=== PATIENT | female | born 2000 | race Caucasian/White ===

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

== ENCOUNTER 2022-03-26 10:52 | Emergency (ER) | payer BC, OTHER ==
--- NOTE | 2022-03-26 11:41 | ED ---
General Adult HPI - General Chief complaint: Back Pain/Injury Stated complaint: Back/side pain Time Seen by Provider: 03/26/22 11:09 Source: patient, RN notes reviewed Mode of arrival: ambulatory Limitations: no limitations - History of Present Illness Initial comments: This is a 22-year-old female presents emergency department tingling of right- sided back pain. Patient states started of recent. Patient has no urinary frequency or dysuria no fevers or chills no chest pain or shortness breath no abdominal pain. She states it does hurt to move. Denies any trauma. Patient is 24 weeks . Patient denies any vaginal bleeding or vaginal discharge. Patient states she is resting switched to Dr. Hutson for her PRIVACY OFFICER. - Related Data Home Medications Medication Instructions Recorded Confirmed Loratadine [Claritin] 10 mg PO DAILY PRN 03/21/15 07/13/21 Albuterol Sulfate [Ventolin HFA] 1 - 2 puff INHALATION RT-Q6H PRN 07/21/20 07/13/21 Pnv No.95/Ferrous Fum/Folic AC 1 tab PO DAILY 07/13/21 07/13/21 [ Multivitamin Tablet] Previous Rx's Medication Instructions Recorded Cephalexin [Keflex] 500 mg PO Q8HR #21 cap 03/26/22 Allergies Allergy/AdvReac Type Severity Reaction Status Date / Time No Known Allergies Allergy Verified 03/26/22 10:55 Review of Systems ROS Statement: Those systems with pertinent positive or pertinent negative responses have been documented in the HPI. ROS Other: All systems not noted in ROS Statement are negative. Past Medical History Past Medical History: Asthma Additional Past Medical History / Comment(s): seasonal allergies History of Any Multi-Drug Resistant Organisms: None Reported Past Surgical History: Adenoidectomy, Tonsillectomy Past Psychological History: Anxiety Smoking Status: Never smoker Past Alcohol Use History: None Reported Past Drug Use History: None Reported General Exam Limitations: no limitations General appearance: alert, in no apparent distress Head exam: Present: atraumatic, normocephalic, normal inspection Eye exam: Present: normal appearance, PERRL, EOMI. Absent: scleral icterus, conjunctival injection, periorbital swelling ENT exam: Present: normal exam, mucous membranes moist Cardiovascular Exam: Present: normal rhythm, tachycardia, normal heart sounds. Absent: systolic murmur, diastolic murmur, rubs, gallop, clicks GI/Abdominal exam: Present: soft, normal bowel sounds. Absent: distended, tenderness, guarding, rebound, rigid Back exam: Present: CVA tenderness (R) (Minimal). Absent: CVA tenderness (L) Course Vital Signs 03/26/22 10:55 Temperature 97.9 F Pulse Rate 110 H Respiratory 18 Rate Blood Pressure 133/81 O2 Sat by Pulse 96 Oximetry Medical Decision Making - Medical Decision Making 22-year-old presented for mild right-sided back pain. Patient pain may be related to muscle skeletal back pain. Patient does have small moderate bacteria and was started on oral antibiotics she is afebrile she has close follow-up return parameters were discussed. - Lab Data Lab Results 03/26/22 Range/Units 11:44 Urine Color Yellow Urine Appearance Cloudy H (Clear) Urine pH 6.5 (5.0-8.0) Ur Specific [place] 1.019 (1.001-1.035) Urine Protein Negative (Negative) Urine Glucose (UA) Negative (Negative) Urine Ketones Negative (Negative) Urine Blood Negative (Negative) Urine Nitrite Negative (Negative) Urine Bilirubin Negative (Negative) Urine Urobilinogen <2.0 (<2.0) mg/dL Ur Leukocyte Esterase Moderate H (Negative) Urine RBC 1 (0-5) /hpf Urine WBC 4 (0-5) /hpf Ur Squamous Epith Cells 13 H (0-4) /hpf Urine Bacteria Occasional H (None) /hpf Urine Mucus Few H (None) /hpf Disposition Clinical Impression: Back pain, UTI (urinary tract infection) Disposition: HOME SELF-CARE Condition: Stable Instructions (If sedation given, give patient instructions): Back Pain (ED) Additional Instructions: Please return to the Emergency Department if symptoms worsen or any other concerns. Prescriptions: Cephalexin [Keflex] 500 mg PO Q8HR #21 cap Is patient prescribed a controlled substance at d/c from ED?: No Referrals: Neal Amaya DO [Primary Care Provider] - 1-2 days Time of Disposition: 12:24
[2022-03-26 12:08] LABS: Appearance,Urine Cloudy (Clear); Bacteria,Urine Occasional /hpf; Bilirubin,Urine Negative (Negative); Blood,Urine Negative (Negative); Color,Urine Yellow; Glucose,Urine (UA) Negative (Negative); Ketones,Urine Negative (Negative); Leukocyte Esterase,Urine Moderate (Negative); Mucus,Urine Few /hpf; Nitrite,Urine Negative (Negative); PH, Urine 6.5 (5.0-8.0); Protein,Urine Negative (Negative); RBC,Urine 1 /hpf (0-5); Specific Gravity,Urine 1.019 (1.001-1.035); Squamous Epithelial Cell,Urine 13 /hpf (0-4); Urobilinogen,Urine <2.0 mg/dL (<2.0); WBC,Urine 4 /hpf (0-5)
[2022-03-26 12:41] VITALS: BP 131/82; PULSE 69; RESP 16; TEMP 98
== END 2022-03-26 12:40 | disposition home or self-care (01) ==
LOC: EC 10:52
DX: O23.42 Unspecified infection of urinary tract in pregnancy, second trimester (principal); O26.892 Other specified pregnancy related conditions, second trimester; N39.0 Urinary tract infection, site not specified; B96.89 Other specified bacterial agents as the cause of diseases classified elsewhere; M54.9 Dorsalgia, unspecified; J45.909 Unspecified asthma, uncomplicated; F41.9 Anxiety disorder, unspecified; Z79.51 Long term (current) use of inhaled steroids; Z3A.24 24 weeks gestation of pregnancy
CPT/HCPCS: 81001; 99283

== ENCOUNTER 2022-06-30 18:54 | Outpatient (CLI) | payer BC, OTHER ==
[2022-06-30 20:22] VITALS: BP 131/89; PULSE 120; RESP 17; TEMP 97.1
--- NOTE | 2022-07-07 08:14 | P.MSEPDOC ---
Presenting Problems - Arrival Data Date of Arrival on Unit: 06/30/22 Time of Arrival on Unit: 18:55 Mode of Transport: Ambulatory - Complaint OB-Reason for Admission/Chief Complaint: Rule Out SROM Comment: Pt presents to triage with c/o SROM around 1730. Pt states she had "three big gushes of clear fluid" Medical History - Information : 2 Para: 1 Term: 1 : 0 Abortions: Spontaneous or Elective: 0 Number of Living Children: 1 - Gestational Age Gestational Age by YOLANDA (wks/days): 38 Weeks and 4 Days Review of Systems - Review of Systems Constitutional: No problems Breast: No problems ENT: No problems Cardiovascular: No problems Respiratory: No problems Gastrointestinal: No problems Genitourinary: No problems Musculoskeletal: No problems Neurological: No problems Skin: No problems Vital Signs - Temperature Temperature: 97.1 F Temperature Source: Temporal Artery Scan - Pulse Pulse Oximetery Pulse Rate: 120 Pulse Assessment Method: Pulse Oximetry - Respirations Respiratory Rate: 17 Oxygen Delivery Method: Room Air O2 Sat by Pulse Oximetry: 99 - Blood Pressure Right Arm Blood Pressure: 131/89 Blood Pressure Mean: 103 Blood Pressure Source: Automatic Cuff Medical Screen Scoring - Cervical Exam Dilation (cm): 3 Effacement (%): 60 Station: -2 Membranes: Intact - Uterine Contractions Resting: Soft to palpation - Assessment - Baby A Baseline FHR: 135 Heart Rate - NICHD Category: Category I (Normal) NST: Reactive Physician Notification - Physician Notified Physician Notified Date: 06/30/22 Physician Notified Time: 19:36 Physician: Maria Elena Amaya Order Received: Yes - Notification Comment Comment: RN spoke with Dr. Amaya regarding triage pt c/o SROM around 1730 and describes having three big gushes of clear fluid. Reported on maternal vital signs, irregular contx pattern with two contx traced but not felt by pt, FHT - including tracing being flat at beginning of strip but is now have a reactive NST, two amnisure tests that were both negative, with the second test being performed at the pt's request, and cervical exam of 3/60/-2. Additionally, reported that pt is scheduled for IOL this with Dr. Hutson. Orders received to discharge pt home, educate that everything looks good regarding tracing, educate on labor S/S and when/if pt needs to return, otherwise we will see pt on for IOL. Maternal Triage Index - Maternal Triage Index Presenting for scheduled procedure w/no complaint: No - Stat/Priority 1 Stat Priority 1: No - Urgent/Priority 2 Urgent Priority 2: No - Prompt/Priority 3 Prompt Priority 3: No - Non-Urgent/Priority 4 Non-Urgent Priority 4: Yes Criteria Met for Priority 4: 38 and 4 weeks with c/o SROM Disposition - Disposition OB Disposition: Discharge to home, Written follow up instructions reviewed Discharge Date: 06/30/22 Discharge Time: 19:42 I agree with the RN Medical Screening Exam: Yes Case reviewed; plan agreed upon as documented in EMR&OBIX.: Yes Diagnosis: rule out labor
== END 2022-06-30 19:42 | disposition home or self-care (01) ==
LOC: FBPOP 18:54
PROVIDERS: ATTEND Obstetrics & Gynecology
DX: O47.1 False labor at or after 37 completed weeks of gestation (principal); Z3A.38 38 weeks gestation of pregnancy
CPT/HCPCS: 59025; 84112; 99213

== ENCOUNTER 2022-07-03 06:00 | Inpatient (IN) | payer BC, OTHER ==
[2022-07-03] MEDS ORDERED: LIDOCAINE 0.5% (PF) 5 MG/ML (50 ML SDV) SQ PRN (06:14)
[2022-07-03] MEDS ORDERED: TERBUTALINE 1 MG/ML VIAL SQ PRN (06:14)
[2022-07-03] MEDS: OXYTOCIN 30 UNITS/500 ML NS 30 UNIT in SALINE 1 500ML.BAG IV SCH ×2 (06:29→15:12)
[2022-07-03] MEDS: LACTATED RINGERS 1,000 ML IV SCH ×2 (06:30→11:00)
[2022-07-03 06:54] LABS: Basophils % (A) 0 %; Eosinophils # (A) 0.1 k/uL (0-0.7); Eosinophils % (A) 1 %; HCT 28.4 % (34.0-46.0); HGB 9.1 gm/dL (11.4-16.0); Hypochromasia Marked; Lymphocytes # (A) 1.7 k/uL (1.0-4.8); Lymphocytes % (A) 17 %; MCH 26.4 pg (25.0-35.0); MCHC 32.1 g/dL (31.0-37.0); MCV 82.4 fL (80.0-100.0); Mean Platelet Volume 10.4; Monocytes # (A) 0.5 k/uL (0-1.0); Monocytes % (A) 5 %; Neutrophils # (A) 7.6 k/uL (1.3-7.7); Neutrophils % (A) 74 %; Platelet Count 212 k/uL (150-450); Poikilocytosis Slight; RBC 3.45 m/uL (3.80-5.40); RDW 15.9 % (11.5-15.5); WBC 10.2 k/uL (4.0-11.0)
--- NOTE | 2022-07-03 07:07 | P.HPOB ---
History of Present Illness H&P Date: 07/03/22 Chief Complaint: Here for induction of labor with advanced cervical dilation This is a 22-year-old female 2 para 1001 EDC 11 06/21/1937 weeks gestation who presents today for induction with advanced cervical dilatation. Fetus is been active throughout the . She is linsey mildly approximately every 4-5 minutes apart. She denies fluid leakage or vaginal bleeding. history significant for type O+, rubella status immune. VDRL testing, urine culture, hepatitis B surface antigen, group B strep cultures all negative. One-hour Glucola 94. Past medical history is significant for hemorrhage with her prior delivery, Methergine given. History of asthma, inhaler as needed. Past surgical history is negative. Current medications vitamins, baby aspirin daily. Social history patient is single, she is a nonsmoker, she denies alcohol or drug use. Family history is unremarkable. On exam patient is 5 foot 4 inches, 224 pounds, blood pressure 135/79 on admission. Vital signs are stable and she is afebrile. General physical exam is within normal limits. Chest is clear in all cuenca. Extremities reveal no edema. Cervix is 4 cm dilated, 70% effaced, -2 station, vertex presentation. Artificial amniorrhexis reveals clear fluid. heart rate is consistent with reactive NST. Impression: 39 week , here for induction of labor. All signs reassuring. Plan: Continue close maternal and surveillance. Analgesic options reviewed. Oxytocin per hospital protocol. Anticipate normal spontaneous va ginal delivery. Review of Systems Constitutional: Reports as per HPI Past Medical History Past Medical History: Asthma Additional Past Medical History / Comment(s): seasonal allergies History of Any Multi-Drug Resistant Organisms: None Reported Past Surgical History: Adenoidectomy, Tonsillectomy Past Psychological History: Anxiety Smoking Status: Never smoker Past Alcohol Use History: None Reported Past Drug Use History: None Reported Medications and Allergies Home Medications Medication Instructions Recorded Confirmed Type Loratadine [Claritin] 10 mg PO DAILY PRN 03/21/15 07/13/21 History Albuterol Sulfate [Ventolin HFA] 1 - 2 puff INHALATION RT-Q6H PRN 07/21/20 07/13/21 History Pnv No.95/Ferrous Fum/Folic AC 1 tab PO DAILY 07/13/21 07/13/21 History [ Multivitamin Tablet] Cephalexin [Keflex] 500 mg PO Q8HR #21 cap 03/26/22 Rx Aspirin [[place] Aspirin EC] 81 mg PO 07/03/22 History Allergies Allergy/AdvReac Type Severity Reaction Status Date / Time No Known Allergies Allergy Verified 07/03/22 06:11 Exam Vital Signs Temp Pulse Resp BP Pulse Ox 07/03/22 06:11 97.7 F 98 16 135/79 96 Intake and Output 07/02/22 07/03/22 07/03/22 22:59 06:59 14:59 Other: Weight 101.605 kg She dictation under HPI placed Results Result Diagrams: 07/03/22 06:10 Abnormal Lab Results - Last 24 Hours (Table) 07/03/22 Range/Units 06:10 RBC 3.45 L (3.80-5.40) m/uL Hgb 9.1 L (11.4-16.0) gm/dL Hct 28.4 L (34.0-46.0) % RDW 15.9 H (11.5-15.5) % Assessment and Plan Assessment: 39 week intrauterine , here for induction of labor. All signs reassuring. Plan: Close maternal and surveillance. Analgesic options reviewed. Anticipate normal spontaneous vaginal delivery. Time with Patient: Less than 30
[2022-07-03] MEDS ORDERED: SODIUM CHLORIDE 0.9% 100 ML BAG ONE (11:37)
[2022-07-03] MEDS ORDERED: ROPIVACAINE 5 MG/ML 20 ML AMPULE ONE (11:37)
[2022-07-03] MEDS ORDERED: fentaNYL (PF) 50 MCG/ML 5 ML AMP ONE (11:37)
[2022-07-03] MEDS ORDERED: ROPIVACAINE 100 MG, fentaNYL (PF). 200 MCG in SODIUM CHLORIDE 0.9% 76 ML EPIDURAL ONE (12:25)
[2022-07-03] MEDS ORDERED: HYDROCORTISONE 2.5% RECTAL CREAM 30 GM TUBE RECTAL PRN (13:08)
[2022-07-03] MEDS ORDERED: diphenhydrAMINE 25 MG CAP PO PRN (13:08)
[2022-07-03] MEDS ORDERED: SIMETHICONE 80 MG CHEWABLE PO PRN (13:08)
[2022-07-03] MEDS ORDERED: diphenhydrAMINE 50 MG CAP PO PRN (13:08)
[2022-07-03] MEDS ORDERED: BENZOCAINE/MENTHOL SPRAY 1 GM/SPRAY AEROSOL TOPICAL PRN (13:08)
[2022-07-03] MEDS ORDERED: ZOLPIDEM 5 MG TAB PO PRN (13:08)
[2022-07-03] MEDS ORDERED: diphenhydrAMINE 50 MG/ML 1 ML VIAL IVP PRN ×2 (13:08)
[2022-07-03] MEDS ORDERED: LANOLIN CREAM 5 GM TUBE TOPICAL PRN (13:08)
--- NOTE | 2022-07-03 13:08 | P.PROBDLV ---
Vaginal Delivery Note - . Vaginal Delivery Note: This is a 22-year-old 2 para 101 EDC 07/10/2022 at 39 weeks gestation who presented earlier today for induction with favorable cervix. Group B strep cultures are negative, blood type O positive, rubella status immune. Please see dictated history and physical for details. Oxytocin was started and titrated per protocol. Epidural was placed per her request. She progressed well through the first stage of labor was judged to be completely dilated. Perineal body was prepped and draped in usual sterile fashion. With excellent maternal expulsive efforts the head delivered occiput anterior and restituted accordingly. There was no nuchal cord noted. The left or anterior shoulder was delivered easily from underneath the pubic symphysis at which time the oropharynx, nasopharynx, and external nares were bulb suctioned. Patient was officially delivered of a liveborn female at 1254 hrs. Per parental request, the cord was allowed to stop pulsating. It was then doubly clamped and ligated, infant was handed to waiting nurses for evaluation where scores of 9 and 9 at one and 5 minutes respectively are given. The placenta delivered spontaneously, it was inspected and noted to be intact with trivascular cord at 1257 hrs. Uterus is then firmly massaged. Careful inspection of the cervix, vagina, perineum, periurethral, and perirectal areas revealed no lacerations and no defects. This is firm and in the midline, symmetric and 18 week size upon completion of delivery. All sponge needle and enhancement counts are correct. Patient and her family are allowed to begin the bonding experience in the LDR. 's weight 3770 g or 8 lbs. 5 oz.
[2022-07-03] MEDS ORDERED: ACETAMINOPHEN TAB 325 MG TAB PO PRN (18:43)
[2022-07-03] MEDS: SENNOSIDES-DOCUSATE SODIUM 1 EACH TAB PO SCH (20:20)
[2022-07-04 06:26] LABS: Basophils % (A) 0 %; Eosinophils # (A) 0.1 k/uL (0-0.7); Eosinophils % (A) 1 %; HCT 28.8 % (34.0-46.0); HGB 9.2 gm/dL (11.4-16.0); Hypochromasia Marked; Lymphocytes # (A) 1.5 k/uL (1.0-4.8); Lymphocytes % (A) 15 %; MCH 26.9 pg (25.0-35.0); MCV 84.3 fL (80.0-100.0); Mean Platelet Volume 11.4; Monocytes # (A) 0.6 k/uL (0-1.0); Monocytes % (A) 6 %; Neutrophils # (A) 7.7 k/uL (1.3-7.7); Neutrophils % (A) 76 %; Platelet Count 189 k/uL (150-450); Poikilocytosis Slight; RBC 3.42 m/uL (3.80-5.40); RDW 15.7 % (11.5-15.5); WBC 10.1 k/uL (4.0-11.0)
[2022-07-04 08:46] VITALS: BP 132/74; PULSE 85; RESP 16; TEMP 98.3
[2022-07-04] MEDS: SENNOSIDES-DOCUSATE SODIUM 1 EACH TAB PO SCH (08:46)
--- NOTE | 2022-07-04 08:51 | P.DS ---
Providers Date of admission: 07/03/22 06:00 Expected date of discharge: 07/04/22 Attending physician: Arely Hutson Primary care physician: Stated None Assessment: This is a 22-year-old white female 2 para 1001 who presented at 39 we eks gestation for elective induction of labor with favorable multiparous cervix. isessentially unremarkable, blood type O positive, rubella status immune.Group B strep cultures negative. Please see dictated history and physical for details. Artificial amniorrhexis revealed clear fluid. Epidural was placed per her request. She went on to deliver vaginally a liveborn female infant with scores of 9 and 9 at one and 5 minutes respectively. weighed 8 lbs. 5 oz. or 3770 g. No perineal lacerations were encountered. Estimated blood loss 200 mL's. Please see dictated delivery note for details. This morning the patient and her baby are both doing very well. Patient is voiding, inability, passing flatus without difficulty. Vital signs are stable and she is afebrile. infant is doing well. Breasts are not engorged. Fundus is firm, midline, symmetric, 18 week size. Patient is judged to be in very good condition for discharge home. She will follow-up with me in the office in 6 weeks. I have reminded her no intercourse, tampons or douching. She will use [id number] Advil or Aleve, or Motrin as needed for pain. She will call with any fevers shakes or chills, foul smelling or copious lochia, with the passage of large blood clots, with any pain not alleviated by [id number] products, or indeed with any concerns. Patient Condition at Discharge: Good Plan - Discharge Summary Discharge Rx Participant: No New Discharge Prescriptions: No Action Loratadine [Claritin] 10 mg PO DAILY PRN PRN Reason: Allergy Symptoms Albuterol Sulfate [Ventolin HFA] 1 - 2 puff INHALATION RT-Q6H PRN PRN Reason: Shortness Of Breath Aspirin [[place] Aspirin EC] 81 mg PO Pnv No.95/Ferrous Fum/Folic AC [ Multivitamin Tablet] 1 tab PO DAILY Cephalexin [Keflex] 500 mg PO Q8HR #21 cap Discharge Medication List Loratadine [Claritin] 10 mg PO DAILY PRN 03/21/15 [History] Albuterol Sulfate [Ventolin HFA] 1 - 2 puff INHALATION RT-Q6H PRN 07/21/20 [History] Pnv No.95/Ferrous Fum/Folic AC [ Multivitamin Tablet] 1 tab PO DAILY 07/13/21 [History] Cephalexin [Keflex] 500 mg PO Q8HR #21 cap 03/26/22 [Rx] Aspirin [[place] Aspirin EC] 81 mg PO 07/03/22 [History] Follow up Appointment(s)/Referral(s): Arely Hutson MD [STAFF PHYSICIAN] - 2 Weeks Discharge Disposition: HOME SELF-CARE
== END 2022-07-04 14:57 | disposition home or self-care (01) | DRG 807 ==
LOC: 4FBP 06:00
PROVIDERS: ADMIT Obstetrics & Gynecology; ATTEND Obstetrics & Gynecology
PROC: 10907ZC Drainage of Amniotic Fluid, Therapeutic from Products of Conception, Via Natural or Artificial Opening (ICD-10-PCS; principal; 2022-07-03)
PROC: 10E0XZZ Delivery of Products of Conception, External Approach (ICD-10-PCS; principal; 2022-07-03)
PROC: 3E033VJ Introduction of Other Hormone into Peripheral Vein, Percutaneous Approach (ICD-10-PCS; principal; 2022-07-03)
DX: O99.344 Other mental disorders complicating childbirth (principal); F41.9 Anxiety disorder, unspecified; O99.52 Diseases of the respiratory system complicating childbirth; J45.909 Unspecified asthma, uncomplicated; Z79.82 Long term (current) use of aspirin; Z87.59 Personal history of other complications of pregnancy, childbirth and the puerperium; Z28.310 Unvaccinated for COVID-19; Z3A.39 39 weeks gestation of pregnancy; Z37.0 Single live birth
CPT/HCPCS: 85025; 86850; 86900; 86901

== ENCOUNTER → 2023-01-07 | Outpatient (CLI) | payer BC, OTHER ==
--- NOTE | 2023-01-07 11:18 | XR ---
EXAM TYPE: LUMBAR SPINE X RAY SERIES COMPARISON: NONE HISTORY: Pain TECHNIQUE: 4 views are submitted. FINDINGS: Alignment is anatomic. The pedicles are intact. The transverse processes are intact. There is no s pondylolisthesis. Spina bifida occulta. IMPRESSION: 1. No acute process.
--- NOTE | 2023-01-07 11:21 | XR ---
EXAMINATION TYPE: XR thoracic spine 2V DATE OF EXAM: 01/07/2023 COMPARISON: NONE HISTORY: Pain TECHNIQUE: 3 views submitted FINDINGS: Alignment is anatomic. There is no compression deformities. Vertebral body height and disc space emily ntained. Pedicles are intact. IMPRESSION: 1. No definite abnormality identified
== END | disposition home or self-care (01) ==
LOC: RADXRMAIN 10:49
PROVIDERS: ATTEND Nurse Practitioner Family
DX: M54.50 Low back pain, unspecified (principal); M54.6 Pain in thoracic spine
CPT/HCPCS: 72070; 72100

== ENCOUNTER 2023-01-30 11:34 | Emergency (ER) | payer BC, OTHER ==
[2023-01-30 11:42] VITALS: RESP 18
[2023-01-30] MEDS ORDERED: diphenhydrAMINE 50 MG/ML 1 ML VIAL IVP STA (12:21)
[2023-01-30] MEDS ORDERED: methylPREDNISolone SOD SUCCI 125 MG/2 ML VIAL IV STA (12:24)
--- NOTE | 2023-01-30 12:34 | ED ---
General Adult HPI - General Chief complaint: Skin/Abscess/Foreign Body Stated complaint: Hives Time Seen by Provider: 01/30/23 12:05 Source: patient Mode of arrival: ambulatory Limitations: no limitations - History of Present Illness Initial comments: -year-old female in no significant past medical history presented to the ED today with chief complaint rash. States that she woke up with an itchy rash to her bilateral upper arms, chest, and her abdomen. Denies any known allergen exposure. He states that she has tried some Benadryl with no relief. No other complaints. - Related Data Home Medications Medication Instructions Recorded Confirmed Loratadine [Claritin] 10 mg PO DAILY PRN 03/21/15 07/13/21 Albuterol Sulfate [Ventolin HFA] 1 - 2 puff INHALATION RT-Q6H PRN 07/21/20 07/13/21 Pnv No.95/Ferrous Fum/Folic AC 1 tab PO DAILY 07/13/21 07/13/21 [ Multivitamin Tablet] Aspirin [[place] Aspirin EC] 81 mg PO 07/03/22 Previous Rx's Medication Instructions Recorded Cephalexin [Keflex] 500 mg PO Q8HR #21 cap 03/26/22 methylPREDNISolone Dose Pack 4 mg PO DIRECTED #1 packet 01/30/23 [Medrol Dose Pack] Allergies Allergy/AdvReac Type Severity Reaction Status Date / Time No Known Allergies Allergy Verified 01/30/23 11:42 Review of Systems ROS Statement: Those systems with pertinent positive or pertinent negative responses have been documented in the HPI. ROS Other: All systems not noted in ROS Statement are negative. Past Medical History Past Medical History: Asthma Additional Past Medical History / Comment(s): seasonal allergies History of Any Multi-Drug Resistant Organisms: None Reported Past Surgical History: Adenoidectomy, Tonsillectomy Past Psychological History: Anxiety Smoking Status: Never smoker Past Alcohol Use History: None Reported Past Drug Use History: None Reported General Exam Limitations: no limitations General appearance: alert, in no apparent distress Head exam: Present: atraumatic, normocephalic Eye exam: Present: normal appearance ENT exam: Present: normal exam, mucous membranes moist, other (No oral lesions.) Neck exam: Present: normal inspection Respiratory exam: Present: normal lung sounds bilaterally Cardiovascular Exam: Present: regular rate, normal rhythm Skin exam: Present: warm, dry, rash (Maculopapular rash on the upper extremities near the axilla, on the breasts, and the lower abdomen.) Course Vital Signs 01/30/23 11:40 Temperature 97.8 F Pulse Rate 110 H Respiratory 18 Rate Blood Pressure 134/91 O2 Sat by Pulse 99 Oximetry Medical Decision Making - Medical Decision Making Was pt. sent in by a medical professional or institution (, MARGRET, DENTAL SCHEDULER, urgent care, hospital, or long term...) When possible be specific @ -No Did you speak to anyone other than the patient for history (EMS, parent, family, police, friend...)? What history was obtained from this source @ -Fianc, reports rash not present yesterday. Did you review nursing and triage notes (agree or disagree)? Why? @ -I reviewed and agree with nursing and triage notes Were old charts reviewed (outside hosp., previous admission, EMS record, old EKG, old radiological studies, urgent care reports/EKG's, long term records)? Report findings @ -No old charts were reviewed Differential Diagnosis (chest pain, altered mental status, abdominal pain women, abdominal pain men, vaginal bleeding, weakness, fever, dyspnea, syncope, headache, dizziness, GI bleed, back pain, seizure, CVA, palpatations, mental health, musculoskeletal)? @ -Atopic dermatitis, SJS, Scabies, Zoster. This is not meant to be an all- inclusive list. EKG interpreted by me (3pts min.). @ -As above X-rays interpreted by me (1pt min.). @ -None done CT interpreted by me (1pt min.). @ -None done U/S interpreted by me (1pt. min.). @ -None done What testing was considered but not performed or refused? (CT, X-rays, U/S, labs)? Why? @ -None What meds were considered but not given or refused? Why? @ -None Did you discuss the management of the patient with other professionals (professionals i.e. MARGRET Brito, DENTAL SCHEDULER, lab, RT, psych nurse, social work job titles, vinyl hanger, teacher, community reinvestment act officer, geriatric case manager)? Give summary @ -No Was smoking cessation discussed for >3mins.? @ -No Was critical care preformed (if so, how long)? @ -No Were there social determinants of health that impacted care today? How? (Homelessness, low income, unemployed, alcoholism, drug addiction, transportation, low edu. Level, literacy, decrease access to med. care, longterm, rehab)? @ -No Was there de-escalation of care discussed even if they declined (Discuss DNR or withdrawal of care, Hospice)? DNR status @ -No What co-morbidities impacted this encounter? (DM, HTN, Smoking, COPD, CAD, Cancer, CVA, ARF, Chemo, Hep., AIDS, mental health diagnosis, sleep apnea, morbid obesity)? @ -None Was patient admitted / discharged? Hospital course, mention meds given and route, prescriptions, significant lab abnormalities, going to OR and other pertinent info. @ -Discharged. Given IV Benadryl and Solu-Medrol with improvement of symptoms. Undiagnosed new problem with uncertain prognosis? @ -No Drug Therapy requiring intensive monitoring for toxicity (Heparin, Nitro, Insulin, Cardizem)? @ -No Were any procedures done? @ -No Diagnosis/symptom? @ -Rash Acute, or Chronic, or Acute on Chronic? @ -Acute Uncomplicated (without systemic symptoms) or Complicated (systemic symptoms)? @ -Uncomplicated Side effects of treatment? @ -No Exacerbation, Progression, or Severe Exacerbation? @ -No Poses a threat to life or bodily function? How? (Chest pain, [place], [place], pneumonia, PE, COPD, DKA, ARF, appy, cholecystitis, CVA, Diverticulitis, Homicidal, Suicidal, threat to staff... and all critical care pts) @ -No Disposition Clinical Impression: Rash Disposition: HOME SELF-CARE Condition: Good Additional Instructions: Please return to the Emergency Department if symptoms worsen or any other concerns. Prescriptions: methylPREDNISolone Dose Pack [Medrol Dose Pack] 4 mg PO DIRECTED #1 packet Is patient prescribed a controlled substance at d/c from ED?: No Referrals: Neal Amaya DO [Primary Care Provider] - 1-2 days Time of Disposition: 12:44 Decision Time: 12:43
[2023-01-30 13:49] VITALS: BP 111/76; PULSE 101; TEMP 97.5
== END 2023-01-30 13:45 | disposition home or self-care (01) ==
LOC: EC 11:34
DX: R21 Rash and other nonspecific skin eruption (principal); J45.909 Unspecified asthma, uncomplicated; F41.9 Anxiety disorder, unspecified; Z79.82 Long term (current) use of aspirin; Z79.899 Other long term (current) drug therapy
CPT/HCPCS: 99282; 96374; 96375; J1200; J2930

== ENCOUNTER → 2023-04-10 | Outpatient (CLI) | payer BC, OTHER ==
--- NOTE | 2023-04-10 13:04 | XR ---
EXAMINATION TYPE: XR forearm LT DATE OF EXAM: 04/10/2023 CLINICAL HISTORY: pain TECHNIQUE: Frontal and lateral images of the left forearm are obtained. COMPARISON: None. FINDINGS: There is no acute fracture/dislocation evident. The joint spaces appear within normal limi ts. The overlying soft tissue appears unremarkable. IMPRESSION: There is no acute fracture or dislocation. ICD 10 NO FRACTURE, INITIAL EVALUATION
--- NOTE | 2023-04-10 13:05 | XR ---
EXAMINATION TYPE: XR wrist complete LT DATE OF EXAM: 04/10/2023 CLINICAL HISTORY: pain TECHNIQUE: Frontal, lateral and oblique images of the left wrist are obtained. COMPARISON: None. FINDINGS: There is no acute fracture/dislocation evident. The joint spaces appear within normal hernandez its. The overlying soft tissue appears unremarkable. IMPRESSION: There is no acute fracture or dislocation seen. ICD 10 NO FRACTURE, INITIAL EVALUATION
== END | disposition home or self-care (01) ==
LOC: RADXRMAIN 12:26
PROVIDERS: ATTEND Family Medicine
DX: M25.532 Pain in left wrist (principal); M79.632 Pain in left forearm

== ENCOUNTER 2024-03-21 09:27 | Outpatient (CLI) | payer BC, OTHER ==
[2024-03-21 10:53] LABS: Basophils # (A) 0.1 k/uL (0-0.2); Basophils % (A) 1 %; Eosinophils # (A) 0.1 k/uL (0-0.7); Eosinophils % (A) 1 %; HCT 30.1 % (34.0-46.0); HGB 9.5 gm/dL (11.4-16.0); Hypochromasia Moderate; Lymphocytes # (A) 1.2 k/uL (1.0-4.8); Lymphocytes % (A) 19 %; MCHC 31.6 g/dL (31.0-37.0); MCV 85.7 fL (80.0-100.0); Mean Platelet Volume 9.8; Monocytes # (A) 0.3 k/uL (0-1.0); Monocytes % (A) 5 %; Neutrophils # (A) 4.2 k/uL (1.3-7.7); Neutrophils % (A) 70 %; Platelet Count 167 k/uL (150-450); Poikilocytosis Slight; RBC 3.51 m/uL (3.80-5.40); RDW 15.3 % (11.5-15.5)
[2024-03-21 10:54] LABS: Appearance,Urine Clear (Clear); Bilirubin,Urine Negative (Negative); Blood,Urine Negative (Negative); Color,Urine Colorless; Glucose,Urine (UA) Negative (Negative); Ketones,Urine 1+ (Negative); Leukocyte Esterase,Urine Negative (Negative); Nitrite,Urine Negative (Negative); Protein,Urine Negative (Negative); Specific Gravity,Urine 1.008 (1.001-1.035); Urobilinogen,Urine <2.0 mg/dL (<2.0)
[2024-03-21 11:01] LABS: ALT 12 U/L (4-34); AST 20 U/L (14-36); African American GFR (CKD) >90 (>60 ml/min/1.73 sqM); Blood Urea Nitrogen 3 mg/dL (7-17); LDH 215 U/L (120-246); Non-African American GFR(CKD) >90 (>60 ml/min/1.73 sqM)
[2024-03-21 11:07] LABS: Creatinine,Urine Random 49.2 mg/dL; Protein/Creatinine Ratio,Urine 0.244
[2024-03-21 11:34] VITALS: BP 127/73; PULSE 111; RESP 17; TEMP 97.8
--- NOTE | 2024-03-21 16:14 | P.MSEPDOC ---
Presenting Problems - Arrival Data Date of Arrival on Unit: 03/21/24 Time of Arrival on Unit: 09:27 Mode of Transport: Ambulatory - Complaint OB-Reason for Admission/Chief Complaint: Elevated Blood Pressure Comment: pt presents to triage for elevated bp's at home, having headaches and nausea, Medical History - Information : 3 Para: 2 Term: 2 : 0 Abortions: Spontaneous or Elective: 0 Number of Living Children: 2 - Gestational Age Gestational Age by YOLANDA (wks/days): 37 Weeks and 2 Days Review of Systems - Review of Systems Constitutional: No problems Breast: No problems ENT: No problems Cardiovascular: No problems Respiratory: No problems Gastrointestinal: No problems Genitourinary: No problems Musculoskeletal: No problems Neurological: No problems Skin: No problems Vital Signs - Temperature Temperature: 97.8 F Temperature Source: Temporal Artery Scan - Pulse Right Brachial Pulse Rate: 111 Pulse Assessment Method: Automatic Cuff - Respirations Respiratory Rate: 17 Oxygen Delivery Method: Room Air - Blood Pressure Right Arm Blood Pressure: 127/73 Blood Pressure Mean: 91 Blood Pressure Source: Automatic Cuff Medical Screen Scoring - Uterine Contractions Intensity: Mild Resting: Soft to palpation - Assessment - Baby A Baseline FHR: 140 Heart Rate - NICHD Category: Category I (Normal) NST: Reactive Physician Notification - Physician Notified Physician Notified Date: 03/21/24 Physician Notified Time: 10:05 Physician: Elizabeth Narvaez - Notification Comment Comment: reactive nst, bp's and labs wnl, pt has appt on Thu with Dr. Narvaez in the office, pt is scheduled for 03/28, Maternal Triage Index - Maternal Triage Index Presenting for scheduled procedure w/no complaint: No - Stat/Priority 1 Stat Priority 1: No - Urgent/Priority 2 Urgent Priority 2: No - Prompt/Priority 3 Prompt Priority 3: Yes Criteria Met for Priority 3: pt presents to triage for elevated bp's at home, having headaches and nausea, Disposition - Disposition OB Disposition: Triage, Discharge to home, Written follow up instructions reviewed Discharge Date: 03/21/24 Discharge Time: 11:25 I agree with the RN Medical Screening Exam: Yes Physician's MSE Comment: I have neither seen nor examined the patient Case reviewed; plan agreed upon as documented in EMR&OBIX.: Yes Diagnosis: MATERNAL CARE FOR PROBLEM, UNSP, THIRD * DO NOT USE *
== END 2024-03-21 11:25 | disposition home or self-care (01) ==
LOC: FBPOP 09:27
PROVIDERS: ATTEND Obstetrics & Gynecology
DX: O26.893 Other specified pregnancy related conditions, third trimester (principal); R03.0 Elevated blood-pressure reading, without diagnosis of hypertension; Z3A.37 37 weeks gestation of pregnancy
CPT/HCPCS: 36415; 59025; 81003; 82565; 82570; 83615; 84156; 84450; 84460; 84520; 84550; 85025; 99215

== ENCOUNTER 2024-03-28 06:00 | Inpatient (IN) | payer BC, OTHER ==
[2024-03-28] MEDS ORDERED: CARBOPROST TROMETHAMINE 250 MCG/ML 1 ML AMP IM PRN (06:15)
[2024-03-28] MEDS ORDERED: TERBUTALINE 1 MG/ML VIAL SQ PRN (06:15)
[2024-03-28] MEDS ORDERED: LIDOCAINE 0.5% (PF) 5 MG/ML (50 ML SDV) SQ PRN (06:15)
[2024-03-28] MEDS: LACTATED RINGERS 1,000 ML IV SCH (06:15)
[2024-03-28] MEDS ORDERED: miSOPROStoL 200 MCG TAB RECTAL PRN (06:15)
[2024-03-28] MEDS ORDERED: miSOPROStoL 200 MCG TAB PO PRN (06:15)
[2024-03-28] MEDS ORDERED: OXYTOCIN 10 UNIT/ML 1 ML VIAL IM PRN (06:15)
[2024-03-28] MEDS ORDERED: TRANEXAMIC 1,000 MG/100ML-NACL 1,000 MG in EMPTY BAG 1 BAG IV PRN (06:15)
[2024-03-28] MEDS: OXYTOCIN 30 UNITS/500 ML NS 30 UNIT in SALINE 1 500ML.BAG IV SCH (06:30)
[2024-03-28 06:47] LABS: Basophils % (A) 1 %; Eosinophils # (A) 0.1 k/uL (0-0.7); Eosinophils % (A) 1 %; HCT 29.2 % (34.0-46.0); HGB 9.2 gm/dL (11.4-16.0); Hypochromasia Marked; Lymphocytes # (A) 1.9 k/uL (1.0-4.8); Lymphocytes % (A) 26 %; MCHC 31.5 g/dL (31.0-37.0); MCV 85.6 fL (80.0-100.0); Mean Platelet Volume 9.7; Monocytes # (A) 0.4 k/uL (0-1.0); Monocytes % (A) 6 %; Neutrophils # (A) 4.5 k/uL (1.3-7.7); Neutrophils % (A) 64 %; Platelet Count 187 k/uL (150-450); Poikilocytosis Slight; RBC 3.41 m/uL (3.80-5.40); RDW 15.8 % (11.5-15.5); WBC 7.1 k/uL (3.8-10.6)
--- NOTE | 2024-03-28 08:43 | P.HPOB ---
History of Present Illness H&P Date: 03/28/24 Chief Complaint: medical induction of labor Ms. Balderas is a 24 year old at 38 weeks and 1 day with EDC of 04/10/2024 who presents for medical induction of labor for chronic hypertension on Procardia XL 30mg daily. The is otherwise complicated by maternal anx iety and depression, which has been stable without pharmacotherapy. Additionally, the patient has a history of asthma which has been well-controlled during the with minimal albuterol use. The fetus is estimated to be in the 17%ile for growth based on a 32 week US. Obstetric history: 2 SVDs, 1st complicated by gestational hypertension and hemorrhage work-up: blood type O positive, antibody screen negative, rubella immune, HBsAg negative, HIV negative, gonorrhea negative, chlamydia negative, 1 hour GTT within normal limits, GBS negative. s/p TDap in 3rd trimester. Past Medical History Past Medical History: Asthma Additional Past Medical History / Comment(s): seasonal allergies History of Any Multi-Drug Resistant Organisms: None Reported Past Surgical History: Adenoidectomy, Tonsillectomy Past Anesthesia/Blood Transfusion Reactions: No Reported Reaction Past Psychological History: Anxiety Smoking Status: Never smoker Past Alcohol Use History: None Reported Past Drug Use History: None Reported - Past Family History Mother Family Medical History: No Reported History Medications and Allergies Home Medications Medication Instructions Recorded Confirmed Type Albuterol Sulfate [Ventolin HFA] 1 - 2 puff INHALATION RT-Q6H PRN 07/21/20 03/28/24 History NIFEdipine XL [Procardia XL] 1 tablet PO DAILY 03/28/24 03/28/24 History Pnv No.154/Iron Fum/Folic Acid 1 tablet PO DAILY 03/28/24 03/28/24 History [ Plus Vitamin Tablet] Allergies Allergy/AdvReac Type Severity Reaction Status Date / Time No Known Allergies Allergy Verified 03/28/24 06:05 Exam Vital Signs Temp Pulse Resp BP Pulse Ox 03/28/24 06:05 97.4 F L 110 H 17 139/86 100 Intake and Output 03/27/24 03/28/24 03/28/24 22:59 06:59 14:59 Other: Weight 106.594 kg Focused physical exam is performed. This is a healthy-appearing in no apparent distress. Breathing is non-labored. Abdomen is gravid and non-tender. Cervical exam is 3/70/-2. AROM is undertaken with clear fluid noted. Extremities non-tender and non-edematous. heart tones are Category I and tocometer is graphing contractions every 3-5 minutes. Results Result Diagrams: 03/28/24 06:10 Abnormal Lab Results - Last 24 Hours (Table) 03/28/24 Range/Units 06:10 RBC 3.41 L (3.80-5.40) m/uL Hgb 9.2 L (11.4-16.0) gm/dL Hct 29.2 L (34.0-46.0) % RDW 15.8 H (11.5-15.5) % Assessment and Plan Assessment: 24 year old at 38 weeks and 2 days presenting for medical induction of labor for chronic HTN on antihypertensives Plan: Admit, clear liquid diet, pitocin per protocol, epidural prn, close monitoring of blood pressures, continuous EFM and tocometer. Anticipate vaginal delivery. Time with Patient: Less than 30
[2024-03-28] MEDS ORDERED: ROPIVACAINE 5 MG/ML 30 ML VIAL ONE (11:10)
[2024-03-28] MEDS ORDERED: fentaNYL (PF) 50 MCG/ML 5 ML AMP ONE (11:10)
[2024-03-28] MEDS ORDERED: SODIUM CHLORIDE 0.9% 250 ML BAG ONE (11:10)
[2024-03-28] MEDS: METHYLERGONOVINE 0.2 MG/ML 1 ML AMP IM PRN (15:23)
[2024-03-28] MEDS ORDERED: LANOLIN CREAM 1 GM TUBE TOPICAL PRN (15:32)
[2024-03-28] MEDS ORDERED: diphenhydrAMINE 25 MG CAP PO PRN (15:32)
[2024-03-28] MEDS ORDERED: diphenhydrAMINE 50 MG CAP PO PRN (15:32)
[2024-03-28] MEDS ORDERED: SIMETHICONE 80 MG CHEWABLE PO PRN (15:32)
[2024-03-28] MEDS ORDERED: ZOLPIDEM 5 MG TAB PO PRN (15:32)
[2024-03-28] MEDS ORDERED: HYDROCORTISONE 2.5% RECTAL CREAM 30 GM TUBE RECTAL PRN (15:32)
[2024-03-28] MEDS ORDERED: BENZOCAINE/MENTHOL SPRAY 1 GM/SPRAY AEROSOL TOPICAL PRN (15:32)
[2024-03-28] MEDS ORDERED: diphenhydrAMINE 50 MG/ML 1 ML VIAL IVP PRN ×2 (15:32)
--- NOTE | 2024-03-28 15:32 | P.PROBDLV ---
Vaginal Delivery Note - . Vaginal Delivery Note: DATE OF SERVICE: 03/28/2024 PROCEDURE: Normal Vaginal Delivery ATTENDING: Dr. Elizabeth Narvaez MD ESTIMATED BLOOD LOSS: 500 mL FINDINGS: VFI, Apgars 9/9. Weight 7 pounds and 9 ounces (3435 grams) PROCEDURE: Ms. Balderas is a 24 year old at 38 weeks and 1 day presenting to labor and delivery for medical induction of labor for chronic HTN on antihypertensives. For further details, please review the admitting H&P. Pitocin was titrated per protocol. AROM was performed at 823 revealing clear amniotic fluid. The patient received epidural anesthesia per her request. The patient was completely dilated at 1506. The patient pushed approximately 5 times during and after a contraction, bringing the head to a crown. Over the next push, the head was delivered and 2 nuchal cords were reduced without difficulty. A viable female was delivered at 1514. The was placed on the maternal abdomen and bulb suctioned. The was noted to be spontaneously crying. Cord was clamped and cut after a 30-second delay. The infant was handed off to the pediatric team. Placenta was delivered whole with gentle cord traction at 1518. Oxytocin was started to facilitate uterine tone. Uterine fundus was found to be firm and below the umbilicus upon fundal massage. However, bleeding was brisk. Oxytocin was run wide open and a dose of IM Methergine was given with minimal bleeding noted after these interventions. Thorough examination of the cervix, vagina, periurethral area, and perineum revealed no lacerations. The patient is stable and allowed to begin the bonding process.
[2024-03-28] MEDS: IBUPROFEN 600 MG TAB PO PRN (16:04)
[2024-03-28] MEDS: NIFEdipine XL 30 MG TAB.ER.24 PO SCH (16:05)
[2024-03-28] MEDS: ACETAMINOPHEN TAB 325 MG TAB PO PRN (22:21)
[2024-03-28] MEDS: SENNOSIDES-DOCUSATE SODIUM 1 EACH TAB PO SCH (22:22)
[2024-03-29 00:22] VITALS: TEMP 97.7
[2024-03-29 05:39] LABS: Basophils # (A) 0.1 k/uL (0-0.2); Basophils % (A) 1 %; Eosinophils # (A) 0.1 k/uL (0-0.7); Eosinophils % (A) 2 %; HCT 26.9 % (34.0-46.0); HGB 8.4 gm/dL (11.4-16.0); Hypochromasia Marked; Lymphocytes # (A) 1.7 k/uL (1.0-4.8); Lymphocytes % (A) 23 %; MCH 27.2 pg (25.0-35.0); MCHC 31.4 g/dL (31.0-37.0); MCV 86.5 fL (80.0-100.0); Mean Platelet Volume 9.1; Monocytes # (A) 0.4 k/uL (0-1.0); Monocytes % (A) 6 %; Neutrophils # (A) 4.7 k/uL (1.3-7.7); Neutrophils % (A) 66 %; Platelet Count 197 k/uL (150-450); Poikilocytosis Slight; RBC 3.11 m/uL (3.80-5.40); RDW 15.7 % (11.5-15.5); WBC 7.2 k/uL (3.8-10.6)
--- NOTE | 2024-03-29 05:57 | P.DS ---
Providers Date of admission: 03/28/24 06:00 Expected date of discharge: 03/29/24 Attending physician: Elizabeth Narvaez MD Primary care physician: Stated None Hospital Course: Ms. Balderas is a 24 year old now PPD#1 s/p normal vaginal delivery after medical induction of labor for chronic hypertension. The patient has been stable on Procardia XL 30mg daily throughout the and the plan is to continue this . Delivery was uncomplicated and she had a viable female . The patient is doing well this morning and had no acute events overnight. She has no complaints this morning. She reports moderate lochia, passing flatus, voiding without difficulty, ambulating, and eating/drinking without nausea or vomiting. doing well at bedside. She denies chest pain, shortness of breathing, fevers, or chills overnight. She denies pain or swelling in the legs. restrictions are reviewed with the patient including pelvic rest for 6 weeks. The patient is encouraged to call the office if she experiences any heavy bleeding, foul-smelling discharge, breast complaints, or any if she has any other concerns. She will follow up in the office with in 1 week for blood pressure check. She plans to use Motrin and Tylenol OTC as needed for pain. She already has a breast pump. All questions are answered. Assessment: 24 year old now PPD#1 s/p normal vaginal delivery Patient Condition at Discharge: Good Plan - Discharge Summary New Discharge Prescriptions: No Action Albuterol Sulfate [Ventolin HFA] 1 - 2 puff INHALATION RT-Q6H PRN PRN Reason: Shortness Of Breath NIFEdipine XL [Procardia XL] 1 tablet PO DAILY Pnv No.154/Iron Fum/Folic Acid [ Plus Vitamin Tablet] 1 tablet PO DAILY Discharge Medication List Albuterol Sulfate [Ventolin HFA] 1 - 2 puff INHALATION RT-Q6H PRN 07/21/20 [History] NIFEdipine XL [Procardia XL] 1 tablet PO DAILY 03/28/24 [History] Pnv No.154/Iron Fum/Folic Acid [ Plus Vitamin Tablet] 1 tablet PO DAILY 03/28/24 [History] Follow up Appointment(s)/Referral(s): Elizabeth Narvaez MD [STAFF PHYSICIAN] - 05/09/24 11:00 am (Also need 1 week BP check) Activity/Diet/Wound Care/Special Instructions: Instructions 1. Do not begin any exercise program for 3 weeks. 2. Do not resume sexual relations for 6 weeks or longer if uncomfortable. 3. You may take tub baths or showers at any time. 4. You may use tampons if desired after 6 weeks. 5. Keep any areas repaired with stitches clean and dry. 6. If you are not nursing, wear a good fitting, supportive bra during the day and limit fluid intake for at least 1 week to prevent breast engorgement. 7. Call the office, , within the next week to make appointment for your 6 week checkup if it has not already been made. 8. Report any of the following occurrences to the doctor promptly: a. Heavy, excessive bleeding b. Chills, fever c. Burning or frequency of urination d. Pain or redness and breasts if nursing e. Increasing pain or swelling of vulva (stitches). In addition to the above instructions, the following additional should be followed: 1. No heavy lifting or straining (exercising) until after 6 week checkup. 2. Keep abdominal incision clean and dry: You may wear a dressing if more comfortable. 3. Make office appointment for 2 weeks after delivery date. Discharge Disposition: HOME SELF-CARE
[2024-03-29 09:43] VITALS: BP 126/78; PULSE 98; RESP 16
[2024-03-29] MEDS: FERROUS SULFATE 325 MG TAB PO SCH (11:49)
== END 2024-03-29 16:21 | disposition home or self-care (01) | DRG 807 ==
LOC: 4FBP 06:00
PROVIDERS: ADMIT Obstetrics & Gynecology; ATTEND Obstetrics & Gynecology
PROC: 10E0XZZ Delivery of Products of Conception, External Approach (ICD-10-PCS; principal; 2024-03-28)
PROC: 10907ZC Drainage of Amniotic Fluid, Therapeutic from Products of Conception, Via Natural or Artificial Opening (ICD-10-PCS; 2024-03-28)
PROC: 3E033VJ Introduction of Other Hormone into Peripheral Vein, Percutaneous Approach (ICD-10-PCS; 2024-03-28)
DX: O10.92 Unspecified pre-existing hypertension complicating childbirth (principal); Z37.0 Single live birth; O69.81X0 Labor and delivery complicated by cord around neck, without compression, not applicable or unspecified; F32.A Depression, unspecified; F41.9 Anxiety disorder, unspecified; J45.909 Unspecified asthma, uncomplicated; O99.344 Other mental disorders complicating childbirth; O99.52 Diseases of the respiratory system complicating childbirth; Z3A.38 38 weeks gestation of pregnancy
CPT/HCPCS: 85025; 86850; 86900; 86901

== ENCOUNTER 2024-12-12 16:19 | Emergency (ER) | payer BC, OTHER ==
[2024-12-12 16:25] VITALS: RESP 18
--- NOTE | 2024-12-12 16:34 | ED ---
Recheck HPI - General Chief Complaint: Recheck/Abnormal Lab/Rx Stated Complaint: Pelvic Pain Time Seen by Provider: 12/12/24 16:32 Source: patient, RN notes reviewed Mode of arrival: ambulatory Limitations: no limitations - History of Present Illness Initial Comments: 24-year-old G3, P3 female presenting to the ER for evaluation of pelvic pain. Patient with a past medical history significant of PCOS. Patient reports her last menstrual cycle began on 10-22-2024. She reports over the past days she has been having a sharp lower abdominal pain. Patient states she took 3 tests which had faint positive results. She states the next day she took an additional 3 which all were negative. Patient presented to urgent care who had a negative urine test but continued to complain of a sharp lower abdominal pain which prompted emergency room visit. She denies any vaginal bleeding or discharge. Denies any dysuria, hematuria or increase in frequency. Patient reports mild nausea but denies any vomiting, diarrhea, constipation, fev ers or chills. No other complaints at this time. - Related Data Home Medications Medication Instructions Recorded Confirmed Albuterol Sulfate [Ventolin HFA] 1 - 2 puff INHALATION RT-Q6H PRN 07/21/20 03/28/24 NIFEdipine XL [Procardia XL] 1 tablet PO DAILY 03/28/24 03/28/24 Pnv No.154/Iron Fum/Folic Acid 1 tablet PO DAILY 03/28/24 03/28/24 [ Plus Vitamin Tablet] Allergies Allergy/AdvReac Type Severity Reaction Status Date / Time No Known Allergies Allergy Verified 03/28/24 06:05 Review of Systems ROS Statement: Those systems with pertinent positive or pertinent negative responses have been documented in the HPI. ROS Other: All systems not noted in ROS Statement are negative. Past Medical History Past Medical History: Asthma Additional Past Medical History / Comment(s): seasonal allergies History of Any Multi-Drug Resistant Organisms: None Reported Past Surgical History: Adenoidectomy, Tonsillectomy Past Anesthesia/Blood Transfusion Reactions: No Reported Reaction Past Psychological History: Anxiety Smoking Status: Never smoker Past Alcohol Use History: None Reported Past Drug Use History: None Reported - Past Family History Mother Family Medical History: No Reported History General Exam Limitations: no limitations General appearance: alert, in no apparent distress Respiratory exam: Present: normal lung sounds bilaterally. Absent: respiratory distress, wheezes, rales, rhonchi, stridor Cardiovascular Exam: Present: regular rate, normal rhythm, normal heart sounds. Absent: systolic murmur, diastolic murmur, rubs, gallop, clicks GI/Abdominal exam: Present: soft, tenderness (suprapubic), normal bowel sounds Neurological exam: Present: alert, oriented X3, CN II-XII intact Skin exam: Present: warm, dry, intact, normal color. Absent: rash Course Vital Signs 12/12/24 12/12/24 16:22 18:31 Temperature 98.1 F 98.4 F Pulse Rate 95 85 Respiratory 18 18 Rate Blood Pressure 151/95 118/74 O2 Sat by Pulse 100 100 Oximetry Medical Decision Making - Medical Decision Making Was pt. sent in by a medical professional or institution (, PA, TOBACCO DRIER OPERATOR, urgent care, hospital, or residential...) When possible be specific @ -No Did you speak to anyone other than the patient for history (EMS, parent, family, police, friend...)? What history was obtained from this source @ -No Did you review nursing and triage notes (agree or disagree)? Why? @ -I reviewed and agree with nursing and triage notes Were old charts reviewed (outside hosp., previous admission, EMS record, old EKG, old radiological studies, urgent care reports/EKG's, residential records)? Report findings @ -No old charts were reviewed Differential Diagnosis (chest pain, altered mental status, abdominal pain women, abdominal pain men, vaginal bleeding, weakness, fever, dyspnea, syncope, headache, dizziness, GI bleed, back pain, seizure, CVA, palpatations, mental health, musculoskeletal)? @ -Differential Abdominal Pain Women:Appendicitis, Cholecystitis, diverticulosis, ischemic bowel, pancreatitis, hepatitis, UTI, gastroenteritis, AAA, incarcerated hernia, bowel obstruction, constipation, inflammatory bowel, hepatitis, peptic ulcer disease, splenic infarction, perforated viscus, vulvitis, ovarian torsion, PID, kidney stone, placenta abruption, this is not meant to be an all-inclusive list EKG interpreted by me (3pts min.). @ -None done X-rays interpreted by me (1pt min.). @ -None done CT interpreted by me (1pt min.). @ -None done U/S interpreted by me (1pt. min.). @ -Pelvic ultrasound showing a left ovarian complex cyst likely representing corpus luteum. Thickened endometrium. Multiple peripheral follicles bilaterally. Appropriate arterial and venous blood flow to bilateral ovaries. What testing was considered but not performed or refused? (CT, X-rays, U/S, labs)? Why? @ -STD testing considered, patient refused. What meds were considered but not given or refused? Why? @ -Patient refused analgesic mediations Did you discuss the management of the patient with other professionals (professionals i.e. , PA, TOBACCO DRIER OPERATOR, lab, RT, psych nurse, social service manager, erector operator, teacher, tax compliance officer, case operator)? Give summary @ -No Was smoking cessation discussed for >3mins.? @ -No Was critical care preformed (if so, how long)? @ -No Were there social determinants of health that impacted care today? How? (Homelessness, low income, unemployed, alcoholism, drug addiction, transportation, low edu. Level, literacy, decrease access to med. care, [facility] [facility], rehab)? @ -No Was there de-escalation of care discussed even if they declined (Discuss DNR or withdrawal of care, Hospice)? DNR status @ -No What co-morbidities impacted this encounter? (DM, HTN, Smoking, COPD, CAD, Cancer, CVA, ARF, Chemo, Hep., AIDS, mental health diagnosis, sleep apnea, morbid obesity)? @ -PCOS Was patient admitted / discharged? Hospital course, mention meds given and route, prescriptions, significant lab abnormalities, going to OR and other pertinent info. @ -Discharge. 24-year-old female presented the ER for evaluation of pelvic pain. Upon examination, vitals within acceptable limits. Workup in the ER unremarkable. Serum hCG less than 2.4. Urinalysis with no evidence of infection. Given his patient's history of PCOS and suprapubic abdominal discomfort, transvaginal ultrasound completed showing a complex left ovarian cyst. No evidence of ovarian torsion bilaterally. Patient refusing analgesic medications.Upon reevaluation, patient resting comfortably on stretcher no signs of acute distress. Results discussed with patient, all questions answered. Appropriate return and follow-up discussed with patient. Patient discharged stable condition. Patient verbally expressed understanding and agreement with care plan. Case discussed with ED attending, Dr. Ya. Undiagnosed new problem with uncertain prognosis? @ -No Drug Therapy requiring intensive monitoring for toxicity (Heparin, Nitro, Insulin, Cardizem)? @ -No Were any procedures done? @ -No Diagnosis/symptom? @ -Pelvic pain Acute, or Chronic, or Acute on Chronic? @ -Acute Uncomplicated (without systemic symptoms) or Complicated (systemic symptoms)? @ -Uncomplicated Side effects of treatment? @ -No Exacerbation, Progression, or Severe Exacerbation? @ -No Poses a threat to life or bodily function? How? (Chest pain, [place], [place], pneumonia, PE, COPD, DKA, ARF, appy, cholecystitis, CVA, Diverticulitis, Homicidal, Suicidal, threat to staff... and all critical care pts) @ -No - Lab Data Result diagrams: 12/12/24 16:38 12/12/24 16:38 Lab Results 12/12/24 12/12/24 12/12/24 Range/Units 16:38 16:38 16:38 WBC 6.79 (4.50-10.00) 10*3/uL RBC 4.19 (4.10-5.20) 10*6/uL Hgb 12.5 (12.0-15.0) g/dL Hct 37.3 (37.2-46.3) % MCV 89.0 (80.0-97.0) fL MCH 29.8 (27.0-32.0) pg MCHC 33.5 (32.0-37.0) g/dL Plt Count 222 (140-440) 10*3/uL MPV 11.6 (9.5-12.2) fL Immature Gran % (Auto) 0.1 % Neutrophils % 57.1 % Lymphocytes % 32.8 % Monocytes % 7.2 % Eosinophils % 1.6 % Basophils % 1.2 % Immature Gran # 0.01 (0.00-0.04) 10*3/uL Neutrophils # 3.87 (1.80-7.70) 10*3/uL Lymphocytes # 2.23 (0.90-5.00) 10*3/uL Monocytes # 0.49 (0.20-1.00) 10*3/uL Eosinophils # 0.11 (0.04-0.35) 10*3/uL Basophils # 0.08 (0.00-0.10) 10*3/uL Sodium 139 (137-145) mmol/L Potassium 4.0 (3.5-5.1) mmol/L Chloride 105 (98-107) mmol/L Carbon Dioxide 27 (22-30) mmol/L Anion Gap 7 mmol/L BUN 17 (7-17) mg/dL Creatinine 0.65 (0.52-1.04) mg/dL Est GFR (CKD-EPI)AfAm >90 (>60 ml/min/1.73 sqM) Est GFR (CKD-EPI)NonAf >90 (>60 ml/min/1.73 sqM) Glucose 88 (74-99) mg/dL Calcium 9.5 (8.4-10.2) mg/dL Total Bilirubin 0.4 (0.2-1.3) mg/dL AST 19 (14-36) U/L ALT 26 (4-34) U/L Alkaline Phosphatase 72 (38-126) U/L Total Protein 7.1 (6.3-8.2) g/dL Albumin 4.2 (3.5-5.0) g/dL HCG, Quant <2.4 mIU/mL Urine Color Light Yellow Urine Appearance Clear (Clear) Urine pH 7.5 (5.0-8.0) Ur Specific [place] 1.033 (1.001-1.035) Urine Protein Trace H (Negative) Urine Glucose (UA) Negative (Negative) Urine Ketones Negative (Negative) Urine Blood Negative (Negative) Urine Nitrite Negative (Negative) Urine Bilirubin Negative (Negative) Urine Urobilinogen 2.0 (<2.0) mg/dL Ur Leukocyte Esterase Trace H (Negative) Urine RBC 1 (0-5) /hpf Urine WBC 2 (0-5) /hpf Ur Squamous Epith Cells 2 (0-4) /hpf Urine Mucus Rare H (None) /hpf - Radiology Data Radiology results: report reviewed, image reviewed Disposition Clinical Impression: Pelvic pain Disposition: HOME SELF-CARE Condition: Stable Additional Instructions: Follow-up with PCP. Return to the ER for any new or worsening symptoms Is patient prescribed a controlled substance at d/c from ED?: No Referrals: Neal Amaya DO [Primary Care Provider] - 1-2 days Time of Disposition: 18:21
[2024-12-12 16:45] LABS: Basophils # (A) 0.08 10*3/uL (0.00-0.10); Basophils % (A) 1.2 %; Eosinophils # (A) 0.11 10*3/uL (0.04-0.35); Eosinophils % (A) 1.6 %; HCT 37.3 % (37.2-46.3); HGB 12.5 g/dL (12.0-15.0); Lymphocytes # (A) 2.23 10*3/uL (0.90-5.00); Lymphocytes % (A) 32.8 %; MCH 29.8 pg (27.0-32.0); MCHC 33.5 g/dL (32.0-37.0); Mean Platelet Volume 11.6 fL (9.5-12.2); Monocytes # (A) 0.49 10*3/uL (0.20-1.00); Monocytes % (A) 7.2 %; Neutrophils # (A) 3.87 10*3/uL (1.80-7.70); Neutrophils % (A) 57.1 %; Platelet Count 222 10*3/uL (140-440); RBC 4.19 10*6/uL (4.10-5.20); RDW 13.8 % (11.5-14.5); WBC 6.79 10*3/uL (4.50-10.00)
[2024-12-12 16:47] LABS: Appearance,Urine Clear (Clear); Bilirubin,Urine Negative (Negative); Blood,Urine Negative (Negative); Color,Urine Light Yellow; Glucose,Urine (UA) Negative (Negative); Ketones,Urine Negative (Negative); Leukocyte Esterase,Urine Trace (Negative); Mucus,Urine Rare /hpf; Nitrite,Urine Negative (Negative); PH, Urine 7.5 (5.0-8.0); Protein,Urine Trace (Negative); RBC,Urine 1 /hpf (0-5); Specific Gravity,Urine 1.033 (1.001-1.035); Squamous Epithelial Cell,Urine 2 /hpf (0-4); WBC,Urine 2 /hpf (0-5)
[2024-12-12 16:55] LABS: ALT 26 U/L (4-34); AST 19 U/L (14-36); African American GFR (CKD) >90 (>60 ml/min/1.73 sqM); Albumin 4.2 g/dL (3.5-5.0); Alkaline Phosphatase 72 U/L (38-126); Anion Gap 7 mmol/L; Blood Urea Nitrogen 17 mg/dL (7-17); Calcium 9.5 mg/dL (8.4-10.2); Carbon Dioxide 27 mmol/L (22-30); Chloride 105 mmol/L (98-107); Glucose 88 mg/dL (74-99); Non-African American GFR(CKD) >90 (>60 ml/min/1.73 sqM); Sodium 139 mmol/L (137-145); Total Bilirubin 0.4 mg/dL (0.2-1.3); Total Protein 7.1 g/dL (6.3-8.2)
[2024-12-12 17:12] LABS: HCG,Quantitative Serum <2.4 mIU/mL
--- NOTE | 2024-12-12 18:15 | US ---
EXAMINATION TYPE: US transvaginal DATE OF EXAM: 12/12/2024 COMPARISON: NONE CLINICAL INDICATION: Female, 24 years old with history of pelvic pain hx PCOS; hx PCOS, states pelvic pain for a few weeks worse the last 2 days TECHNIQUE: Transvaginal (TV). Transabdominal grayscale sonographic images of the pelvis were acquired. Transvaginal sonographic im ages were medically necessary to better assess the following anatomy: Ovaries Doppler imaging: Color Doppler Images were obtained. Spectral doppler images were obtained. FINDINGS: Date of LMP: 10/22/2024 EXAM MEASUREMENTS: Uterus: 9.9 x 4.3 x 4.8 cm Endometrial Stripe: 1.7 cm Right Ovary: 3.6 x 1.8 x 1.8 cm Left Ovary: 3.5 x 2.4 x 3.1 cm 1. Uterus: Anteverted wnl 2. Endometrium: thickened 3. Right Ovary: wnl 4. Left Ovary: there is a 1.1 x 1.3 x 1.2cm complex area with peripheral vascularity seen within Spectral, color and waveform doppler imaging shows good arterial and venous flow within the ovaries ; there is no evidence for ovarian torsion. 5. Bilateral Adnexa: there are prominent vessels seen bilaterally measuring up to 5mm on the right a nd 6mm on the left 6. Posterior cul-de-sac: wnl IMPRESSION: 1. Left ovarian complex cyst likely representing corpus luteum. Correlate with beta hCG. 2. Thickened endometrium. Consider further evaluation, MRI 3. Multiple peripheral follicles bilaterally compatible with pelvic cystic ovarian morphology 4. Appropriate arterial and venous spectral waveforms to the ovaries. [facility], , 12/12/2024 6:13 PM
[2024-12-12 18:32] VITALS: BP 118/74; PULSE 85; TEMP 98.4
== END 2024-12-12 18:32 | disposition home or self-care (01) ==
LOC: EC 16:19
DX: R10.2 Pelvic and perineal pain (principal); Z87.42 Personal history of other diseases of the female genital tract
CPT/HCPCS: 36415; 76830; 80053; 81001; 84702; 85025; 93975; 99284

== ENCOUNTER → 2024-12-21 | Outpatient (CLI) | payer BC, OTHER | END | disposition home or self-care (01) | LOC: LABWHC1 11:55 | PROVIDERS: ATTEND Obstetrics & Gynecology | DX: Z34.81 Encounter for supervision of other normal pregnancy, first trimester (principal) | CPT/HCPCS: 36415; 84702 ==